=== PATIENT | female | born 1950 | race Caucasian/White ===

== ENCOUNTER → 2017-04-29 | Outpatient (CLI) | payer MEDICARE ==
--- NOTE | 2017-04-29 14:44 | RADRPT ---
EXAM DATE/TIME: 04/29/2017 14:00 [facility] COMPARISON: No previous studies available for comparison. INDICATIONS : Left knee pain with no known injury. MEDICAL HISTORY : None. SURGICAL HISTORY : Left knee surgery. ENCOUNTER: Initial ACUITY: 1 month PAIN SCORE: 3/10 LOCATION: Left knee FINDINGS: 4 views left knee. 2 metallic sophia are identified in the medial femoral condyle. One of the staple s is fractured. Several adjacent corticated ossific densities. Moderate sized tricompartmental osteop hytes. Mild medial compartment narrowing. Small joint effusion. No evidence of acute fracture. CONCLUSION: 1. Osteoarthritic findings with moderate sized tricompartmental osteophytes and mild medial compartme nt narrowing. 2. Small joint effusion. 3. Post surgical findings of the medial femoral condyle. 4. Small joint effusion. Leo Lopez MD on April 29, 2017 at 14:41 Board Certified Radiologist. This report was verified electronically.
--- NOTE | 2017-04-29 14:46 | RADRPT ---
EXAM DATE/TIME: 04/29/2017 14:04 [facility] COMPARISON: No previous studies available for comparison. INDICATIONS : Right knee pain with no known injury. MEDICAL HISTORY : None. SURGICAL HISTORY : Left knee surgery. ENCOUNTER: Initial ACUITY: 1 month PAIN SCORE: 6/10 LOCATION: Right knee FINDINGS: 5 views right knee. Moderate sized tricompartmental osteophytes. Mild medial compartment narrowing. B one alignment within normal limits. No evidence of fracture. Moderate-sized joint effusion. CONCLUSION: 1. Osteoarthritic findings with moderate sized tricompartmental osteophytes and mild medial compartme nt narrowing. 2. Moderate-sized joint effusion. 3. No evidence of fracture. Leo Lopez MD on April 29, 2017 at 14:42 Board Certified Radiologist. This report was verified electronically.
== END ==
LOC: HRAD 13:40
PROVIDERS: ATTEND Family Medicine
DX: M25.561 Pain in right knee (principal); M25.562 Pain in left knee
CPT/HCPCS: 73564